=== PATIENT | female | born 1940 | race Caucasian/White ===

== ENCOUNTER 2016-11-20 09:45 | Emergency (ER) | payer OTHER ==
[2016-11-20 09:56] VITALS: BP 128/99; PULSE 90; TEMP 97.8; BMI 20.9
--- NOTE | 2016-11-20 10:13 | PDOC ---
Attending Attestation - Resident Resident Name: Lynn Nath - ED Attending Attestation I have performed the following: I have examined & evaluated the patient, The case was reviewed & discussed with the resident, I agree w/resident's findings & plan, Exceptions are as noted - HPI HPI: 11/20/16 10:35 The patient is 75 year old female who presents with back pain that occurred while bending over and putting her underwear on and has been intermittent for the past three days. It is lower and lateral. It only occurs with position change. It does not radiate. She denies lower extremity weakness. She denies sensory loss. She denies bladder or bowel incontinence or retention. She has an appointment with her orthopedic surgeon next week. She denies fever, rash. She denies trauma. She denies urinary symptoms, nausea, vomiting, diarrhea, abdominal pain. - Physicial Exam PE: 11/20/16 10:38 Reproducible tenderness over left gluteus major and minor laterally No strength or sensory deficits in that lower extremity - Medical Decision Making 11/20/16 10:39 Clinical impression: Muscle strain of the gluteus minor/major I discussed the physical exam findings, ancillary test results and final diagnoses with the patient. I answered all of the patient's questions. The patient was satisfied with the care received and felt comfortable with the discharge plan and treatment plan. The patient will call their primary care physician within 24 hours to arrange follow-up and will return to the Emergency Department with any new, persistent or worsening symptoms. Discharge Disposition - Diagnosis Muscle strain of gluteal region - Discharge Dispostion Disposition: HOME Condition at time of disposition: Stable Last Admission D/C Date: 04/02/09 - Referrals Referrals: Kin Goodman MD [Staff Physician] - (See him next week as scheduled)
--- NOTE | 2016-11-20 10:57 | PDOC ---
History of Present Illness <АндрейArcadio - Last Filed: 11/20/16 10:59> - General History Source: Patient Exam Limitations: No Limitations - History of Present Illness Initial Comments: 11/20/16 11:01 This is a 75 yp F with PMH of HTN and HLD, who presents due to L sided hip pain x 3 days. It started suddenly as she was bending over. It is sharp, nonradiating , localized over her L buttock and illicited by getting up from sitting or lying. She is pain free while walking, standing or lying. She denies numbness, weakness, paresthesia or loss of bowels. she denies pain radiation down leg. She denies f/c, chest pain, sob, n.v, diarrhea, constipation, dysuria, hematuria , flank pain. SHE HAS A HISTORY OF MINOR PROCEDURE WITH DR MELTON FOR A DIFFERENT KIND OF BACK PAIN 5 YRS AGO, PROBABLY EPIDURAL AND HAS AN APPOINTMENT WITH HIM NEXT WEEK. 11/20/16 11:05 11/20/16 11:29 <Lynn Nath - Last Filed: 11/20/16 11:36> - General Chief Complaint: Back Pain Stated Complaint: BACK PAIN Time Seen by Provider: 11/20/16 09:48 Past History <Arcadio Chiang - Last Filed: 11/20/16 10:59> - Travel Traveled outside of the country in the last 30 days: No Close contact w/someone who was outside of country & ill: No - Past Medical History Anemia: No Asthma: No Cancer: No Cardiac Disorders: Yes (MITRAL VALVE DISORDER, RBBB) CVA: No COPD: No CHF: No Dementia: No Diabetes: No GI Disorders: Yes (VOLVULUS 2007) Disorders: No HTN: No Hypercholesterolemia: Yes Liver Disease: No Seizures: No Thyroid Disease: No Other medical history: PNEUMONIA, SHINGELES - Surgical History Abdominal Surgery: Yes (COLON RESECTION FOR VOLVULUS 2007) Appendectomy: No Cardiac Surgery: No Cholecystectomy: No Lung Surgery: No Neurologic Surgery: No Orthopedic Surgery: Yes (LEFT ROTATOR CUFF REPAIR) - Immunization History Immunization Up to Date: Yes - Psycho/Social/Smoking Cessation Hx Anxiety: No Suicidal Ideation: No Smoking Status: No Smoking History: Never smoked Have you smoked in the past 12 months: No Number of Cigarettes Smoked Daily: 0 Information on smoking cessation initiated: No Hx Alcohol Use: No Drug/Substance Use Hx: No Substance Use Type: None Hx Substance Use Treatment: No <Lynn Nath - Last Filed: 11/20/16 11:36> - Past Medical History Allergies/Adverse Reactions: Allergies Allergy/AdvReac Type Severity Reaction Status Date / Time No Known Allergies Allergy Verified 11/20/16 09:56 Home Medications: Ambulatory Orders Atorvastatin Ca [Lipitor] 10 mg PO HS 11/20/16 Diazepam [Valium] 5 mg PO Q8H PRN #9 tablet MDD 3 11/20/16 Naproxen [Naprosyn] 500 mg PO BID PRN #20 tablet 11/20/16 Niacin [Niaspan] 2,000 mg PO HS 11/20/16 Polyethylene Glycol 3350 [Miralax (For Daily Use) -] 17 gm PO DAILY 11/20/16 Review of Systems - Review of Systems Able to Perform ROS?: Yes Is the patient limited Mexican proficient: No Constitutional: No: Chills, Fever, Loss of Appetite, Weakness HEENTM: No: Blurred Vision, Nose Congestion, Throat Pain Respiratory: No: Cough, Orthopnea, Shortness of Breath Cardiac (ROS): No: Chest Pain, Irregular Heart Rate, Palpitations, Syncope ABD/GI: No: Abdominal Distended, Blood Streaked Bowels, Nausea, Rectal Bleeding , Vomiting, Tarry Stools : No: Burning, Dysuria, Flank Pain Musculoskeletal: No: Joint Pain, Joint Swelling, Muscle Pain, Muscle Weakness, Joint Stiffness Integumentary: No: Bruising Neurological: No: Headache, Numbness, Paresthesia Psychiatric: No: Anxiety, Stressors Endocrine: No: Change in Weight Hematologic/Lymphatic: No: Anemia, Blood Clots, Easy Bleeding, Easy Bruising All Other Systems: Reviewed and Negative <Lynn Nath - Last Filed: 11/20/16 11:36> *Physical Exam - Vital Signs Last Vital Signs Temp Pulse Resp BP Pulse Ox 97.8 F 90 16 128/99 99 11/20/16 09:46 11/20/16 09:46 11/20/16 09:46 11/20/16 09:46 11/20/16 09:46 <Arcadio Chiang - Last Filed: 11/20/16 10:59> - Vital Signs Last Vital Signs Temp Pulse Resp BP Pulse Ox 97.8 F 90 16 128/99 99 11/20/16 09:46 11/20/16 09:46 11/20/16 09:46 11/20/16 09:46 11/20/16 09:46 - Physical Exam Comments: 11/20/16 11:31 GENERAL: NAD, AAOx3 HEENT: normocephalic, atraumatic, PERRLA EOMI, sclera anicteric, conjunctiva clear CV: RRR S1S2 PULM: CTA b/l GI: soft, nontender, normoactive bowel sounds. no mass SKIN: no lesions mulculoskepetal: no peripheral edema, reproducible L buttick pain with interbal rotation of L thigh with flexion. crossing L leg past midline Neuro: 4+/5 strenght in LE b/l, sensation intact. <Lynn Nath - Last Filed: 11/20/16 11:36> Medical Decision Making - Medical Decision Making 11/20/16 11:34 Patient presents with clinical picture most consistent with L buttock muscle spasm, possibly piriformis or gluteus minor. There is no clinical evidence of neurological culprit. Imaging not indicated. recommend NSAIDS, icing and muscle relaxants as well as ortho f/u. 11/20/16 11:36 <Lynn Nath - Last Filed: 11/20/16 11:36> *DC/Admit/Observation/Transfer <Arcadio Chiang - Last Filed: 11/20/16 10:59> - Discharge Dispostion Admit: No <Lynn Nath - Last Filed: 11/20/16 11:36> Diagnosis at time of Disposition: Muscle strain of gluteal region, Muscle spasm, Left hip pain - Discharge Dispostion Disposition: HOME Condition at time of disposition: Stable - Prescriptions Prescriptions: Naproxen [Naprosyn] 500 mg PO BID PRN #20 tablet PRN Reason: Pain Diazepam [Valium] 5 mg PO Q8H PRN #9 tablet MDD 3 PRN Reason: Pain - Referrals Referrals: Kin Melton MD [Staff Physician] - (See him next week as scheduled) - Patient Instructions Additional Instructions: You right sided back and hip pain is due to a muscle spasm in your buttock. Please take Aleve twice a day and keep in mind that it takes several days to work. Ice the affected area daily. You may take one valium before sleep to relax your muscle but be aware that it will make your drowsy and tipsy. Please follow up with Dr Melton. Return to ED if symptoms persist, get worse or if you develop new symptoms.
== END 2016-11-20 11:10 | disposition home or self-care (01) ==
LOC: FER 09:45
DX: M62.838 Other muscle spasm (principal); M25.552 Pain in left hip; T14.8 Other injury of unspecified body region; X58.XXXA Exposure to other specified factors, initial encounter; Y93.9 Activity, unspecified; Y92.9 Unspecified place or not applicable; I10 Essential (primary) hypertension; E78.5 Hyperlipidemia, unspecified; I45.10 Unspecified right bundle-branch block
CPT/HCPCS: 99282-25

== ENCOUNTER 2016-12-21 07:39 | Emergency (ER) | payer OTHER ==
[2016-12-21 07:50] VITALS: TEMP 97.8; BMI 19.4
--- NOTE | 2016-12-21 08:24 | PDOC ---
Attending Attestation - Resident Resident Name: JanaeJalen - ED Attending Attestation I have performed the following: I have examined & evaluated the patient, The case was reviewed & discussed with the resident, I agree w/resident's findings & plan, Exceptions are as noted - HPI HPI: 12/21/16 10:18 76y/o F h/o HTN, high chol, volvulus requiring surgical repair in the past p/w quite acute onset of periumbilical/upper abd pain last night with nausea, no vomiting. Did have slighly increased loose stool, also non-bloody. no f/c, no travel/sick contacts/recent abx/recurring nsaid or etoh use. Unlike her prior volvulus pain, this was much less severe. Pain has now resolved, just left with a vague soreness. - Physicial Exam PE: 12/21/16 10:21 VSS well appearing, ambulating, mmm no jaundice/pallor abd soft/nd. epigastric discomfort but no guarding/rebound. BS wnl. no cvat - Medical Decision Making 12/21/16 10:22 Patient seen and evaluated with the resident. I agree with the overall evaluation, assessment, and management with the following summary of visit: 76-year-old female with history of hypertension, high cholesterol, volvulus presents with abdominal pain/nausea/vomiting since last night, now resolved. Abdominal exam is nonlocalizing and quite benign at this time. Intermittent SBO or volvulus is on the differential though slightly less likely given the rectal output. Question dyspepsia/gastritis, rule out liver or pancreatic involvement. Labs, EKG Antacid IV fluids Reassess, no indication for emergent imaging at this time. Heart Score/ECG Review #1 General ECG Interpretation: Sinus Rhythm (RBBB, QRS 124, QTC 470), Normal Rate ( 72), No acute ischemic changes
--- NOTE | 2016-12-21 08:25 | PDOC ---
History of Present Illness - General Chief Complaint: Pain Stated Complaint: ABD PAIN Time Seen by Provider: 12/21/16 08:02 - History of Present Illness Initial Comments: 12/21/16 09:05 Patient is a 76 year old female with a history of volvulus, HTN, HLD, scoliosis who presents with abdominal pain. Patient states that she experienced sudden onset 10/10 sharp abdominal pain beginning earlier this morning and keeping her up all night prompting her visit to the ED today. She states that the pain is now less severe and more achy in quality. She endorses nausea associated with the pain but denies any vomiting. She reports loose bowel movements which is normal for her with her most recent being in the ED. She denies any bloody stools, fevers, chills, chest pain, or SOB. Past History - Past Medical History Allergies/Adverse Reactions: Allergies Allergy/AdvReac Type Severity Reaction Status Date / Time No Known Allergies Allergy Verified 12/21/16 07:49 Home Medications: Ambulatory Orders Atorvastatin Ca [Lipitor] 20 mg PO HS 11/20/16 Niacin [Niaspan] 2,000 mg PO HS 11/20/16 Polyethylene Glycol 3350 [Miralax (For Daily Use) -] 17 gm PO DAILY 11/20/16 Anemia: No Asthma: No Cancer: No Cardiac Disorders: Yes (MITRAL VALVE DISORDER, RBBB) CVA: No COPD: No CHF: No Dementia: No Diabetes: No GI Disorders: Yes (VOLVULUS 2007) Disorders: No HTN: Yes Hypercholesterolemia: Yes Liver Disease: No Seizures: No Thyroid Disease: No - Surgical History Abdominal Surgery: Yes (COLON RESECTION FOR VOLVULUS 2007) Appendectomy: No Cardiac Surgery: No Cholecystectomy: No Lung Surgery: No Neurologic Surgery: No Orthopedic Surgery: Yes (LEFT ROTATOR CUFF REPAIR) - Immunization History Immunization Up to Date: Yes - Psycho/Social/Smoking Cessation Hx Anxiety: No Suicidal Ideation: No Smoking Status: No Smoking History: Never smoked Have you smoked in the past 12 months: No Number of Cigarettes Smoked Daily: 0 Hx Alcohol Use: No Drug/Substance Use Hx: No Substance Use Type: None Hx Substance Use Treatment: No Review of Systems - Review of Systems Constitutional: No: Chills, Fever HEENTM: No: Nose Congestion, Throat Pain Respiratory: No: Cough, Shortness of Breath Cardiac (ROS): No: Chest Pain, Palpitations ABD/GI: Yes: Diarrhea, Nausea. No: Blood Streaked Bowels, Constipated, Rectal Bleeding, Vomiting, Tarry Stools : No: Burning, Dysuria, Flank Pain, Hematuria Integumentary: No: Rash Neurological: No: Headache, Tingling *Physical Exam - Vital Signs Last Vital Signs Temp Pulse Resp BP Pulse Ox 97.8 F 91 H 18 143/69 99 12/21/16 07:45 12/21/16 07:45 12/21/16 07:45 12/21/16 07:45 12/21/16 07:45 - Physical Exam Comments: 12/21/16 09:15 General Appearance: Nourished. No Apparent Distress HEENT: No Pharyngeal Erythema, Tonsillar Exudate, Tonsillar Erythema Respiratory/Chest: Lungs Clear, Normal Breath Sounds. No Crackles, Rales, Rhonchi, Wheezing Cardiovascular: Regular Rhythm, Regular Rate. No Murmur, Gallop/S3, Gallop/S4 Gastrointestinal/Abdominal: Normal Bowel Sounds, Soft. Mild tenderness in the epigastric region. No Guarding, Rebound Extremity: Normal Capillary Refill Integumentary: Normal Color, Dry, Warm Neurologic: Fully Oriented, Alert, Normal Mood/Affect, Normal Response Heart Score/ECG Review #1 ECG reviewed & interpreted by me at: 08:24 (Sinus rhythm, normal rate. Widened QRS interval with t wave inversions in V1-V4. Complete Right bundle branch block.) Compared to previous ECG there are: No significant change (10/24/15) ED Treatment Course - LABORATORY CBC & Chemistry Diagram: 12/21/16 10:07 12/21/16 10:07 Medical Decision Making - Medical Decision Making 12/21/16 10:10 Patient is a 76 year old female with a history of volvulus and scoliosis who presents with abdominal pain. Differential includes but is not limited to: gastritis, GERD, gallbladder pathology, pancreatits, obstruction, hernia, infectious, ACS. Given the patient's physical exam and history, the most likely cause of her symptoms is gastritis or GERD. We will obtain a set of labs including cbc, cmp, troponin, lipase. We are less concerned for ACS, obstruction or infectious given her physical exam and presentation. We will hold off on imaging pending lab values. 12/21/16 11:15 Patient's labs hemolyzed and had to be redrawn. Patient feels clinically improved with pepcid and IV fluids and is requesting discharge. We discussed with the patient the need to wait for lab results, however the patient still requested discharge. CBC and lipase currently resulted as normal. CMP pending. We feel comfortable discharging the patient and will call them with the results of the CMP. We discussed return precautions with the patient and she is agreeable to the plan. 12/21/16 13:19 CMP results are unremarkable. Called patient and notified her of the results. The patient voiced understanding. *DC/Admit/Observation/Transfer Diagnosis at time of Disposition: Dyspepsia Gastritis Qualifiers: Gastritis type: unspecified gastritis Chronicity: unspecified Gastritis bleeding: without bleeding Qualified Code(s): K29.70 - Gastritis, unspecified, without bleeding - Discharge Dispostion Disposition: HOME Condition at time of disposition: Improved - Referrals Referrals: Jose Elias Polanco MD [Primary Care Provider] - - Patient Instructions Printed Discharge Instructions: DI for Gastritis Additional Instructions: Please return to the ER if you experience concerning or worsening symptoms. We will call you with the results of your labs. If any labs are abnormal, please return to the ER immediately. Please follow up with your primary care provider to discuss your ER visit. You may take Pepcid 20mg tablets twice daily for 1 week to help alleviate your symptoms. - Attestations Physician Attestion: 12/21/16 10:46 I, Dr. Jalen Cardoso, attest that this document has been prepared under my direction and personally reviewed by me in its entirety. I further attest, that it accurately reflects all work, treatment, procedures and medical decision -making performed by me.
[2016-12-21] MEDS ORDERED: FAMOTIDINE 20 MG/50 ML IVPB 50 ML IVPB ONE ×2 (08:49→09:07)
[2016-12-21] MEDS ORDERED: SODIUM CHLORIDE 1,000 ML IV STA (09:29)
[2016-12-21 10:20] LABS: BASOPHIL 0.8 % (0-2.0); EOSINOPHIL 1.8 % (0-4.5); MCH 33.1 pg (25.7-33.7); MCHC 33.7 g/dl (32.0-36.0); MEAN CELL VOLUME 98.2 fl (80-96); MEAN PLT VOLUME 7.9 fl (7.5-11.1); NEUTROPHILS 73.4 % (42.8-82.8); PLATELET COUNT 235 K/MM3 (134-434); RDW 11.9 % (11.6-15.6); WHITE BLOOD COUNT 8.4 K/mm3 (4.0-10.0)
[2016-12-21 10:44] LABS: ALBUMIN 4.1 g/dl (3.4-5.0); ANION GAP 9 (8-16); BILIRUBIN,TOTAL 0.6 mg/dL (0.2-1.0); CALCIUM 9.2 mg/dL (8.5-10.1); CO2 29 mmol/L (21-32); CREATININE 0.6 mg/dL (0.55-1.02); GLUCOSE,RANDOM 103 mg/dL (74-106); SGOT/AST 26 U/L (15-37); SGPT/ALT 23 U/L (12-78); TOT PROT 7.2 g/dl (6.4-8.2)
[2016-12-21 10:46] LABS: ALK PHOS 87 U/L (45-117); TROPONIN I < 0.02 ng/ml (0.00-0.05)
[2016-12-21 11:04] VITALS: BP 151/78; PULSE 67
--- NOTE | 2016-12-21 16:13 | EKG ---
Test Reason : Blood Pressure : / mmHG Vent. Rate : 072 BPM Atrial Rate : 072 BPM P-R Int : 120 ms QRS Dur : 124 ms QT Int : 430 ms P-R-T Axes : 059 017 010 degrees QTc Int : 470 ms NORMAL SINUS RHYTHM RIGHT BUNDLE BRANCH BLOCK ABNORMAL ECG WHEN COMPARED WITH ECG OF 24-OCT-2015 09:40, NO SIGNIFICANT CHANGE WAS FOUND CORELATE CLINICALLY Confirmed by CHEPE HUERTA MD ([id number]) on 12/21/2016 4:13:30 PM Referred By: Confirmed By:CHEPE HUERTA MD
== END 2016-12-21 11:00 | disposition home or self-care (01) ==
LOC: JER 07:39
PROC: 3E0337Z Introduction of Electrolytic and Water Balance Substance into Peripheral Vein, Percutaneous Approach (ICD-10-PCS; principal; 2016-12-21)
PROC: 3E033GC Introduction of Other Therapeutic Substance into Peripheral Vein, Percutaneous Approach (ICD-10-PCS; 2016-12-21)
DX: K29.70 Gastritis, unspecified, without bleeding (principal); R10.13 Epigastric pain; I10 Essential (primary) hypertension; E78.00 Pure hypercholesterolemia, unspecified; I34.1 Nonrheumatic mitral (valve) prolapse; Z87.19 Personal history of other diseases of the digestive system
CPT/HCPCS: 36415; 80053; 82550; 83690; 84484; 85025; 93005; 93010; 96361; 96365; 99282-25

== ENCOUNTER 2017-12-22 09:01 | Emergency (ER) | payer OTHER ==
[2017-12-22 09:18] VITALS: BP 137/62; PULSE 83; TEMP 97.8; BMI 19.3
--- NOTE | 2017-12-22 10:01 | PDOC ---
History of Present Illness - General Chief Complaint: Loss of Appetite Stated Complaint: INSOMNIA Time Seen by Provider: 12/22/17 09:38 History Source: Patient, Spouse Exam Limitations: No Limitations - History of Present Illness Initial Comments: 12/22/17 10:08 77 yr female history of high cholesterol, presents to ER stating she has not slept in 3 nights. Pt is stressed at home taking care of and her bipolar adult daughter who lives with them. Pt denies suicidal thoughts, no alcohol or drug use. Pt asking for refill of the sleeping pill she had last month by . Past History - Past Medical History Allergies/Adverse Reactions: Allergies Allergy/AdvReac Type Severity Reaction Status Date / Time No Known Allergies Allergy Verified 12/22/17 09:12 Home Medications: Ambulatory Orders Atorvastatin Ca [Lipitor] 20 mg PO HS 11/20/16 Niacin [Niaspan] 2,000 mg PO HS 11/20/16 Polyethylene Glycol 3350 [Miralax (For Daily Use) -] 17 gm PO DAILY 11/20/16 Diphenhydramine HCl [Benadryl -] 25 mg PO HS PRN #10 capsule 12/17/17 Zolpidem Tartrate [Ambien] 5 mg PO HS PRN #7 tablet MDD 5mg 12/22/17 Anemia: No Asthma: No Cancer: No Cardiac Disorders: Yes (MITRAL VALVE DISORDER, RBBB) CVA: No COPD: No CHF: No Dementia: No Diabetes: No GI Disorders: Yes (VOLVULUS 2007) Disorders: No HTN: Yes Hypercholesterolemia: Yes Liver Disease: No Seizures: No Thyroid Disease: No - Surgical History Abdominal Surgery: Yes (COLON RESECTION FOR VOLVULUS 2007) Appendectomy: No Cardiac Surgery: No Cholecystectomy: No Lung Surgery: No Neurologic Surgery: No Orthopedic Surgery: Yes (LEFT ROTATOR CUFF REPAIR) - Immunization History Immunization Up to Date: Yes - Suicide/Smoking/Psychosocial Hx Smoking Status: No Smoking History: Never smoked Have you smoked in the past 12 months: No Number of Cigarettes Smoked Daily: 0 Information on smoking cessation initiated: No Hx Alcohol Use: No Drug/Substance Use Hx: No Substance Use Type: None Hx Substance Use Treatment: No Review of Systems - Review of Systems Able to Perform ROS?: Yes Is the patient limited Telugu proficient: No Constitutional: No: Symptoms Reported HEENTM: No: Symptoms Reported Respiratory: No: Symptoms reported Cardiac (ROS): No: Symptoms Reported ABD/GI: No: Symptoms Reported : No: Symptoms Reported Musculoskeletal: No: Symptoms Reported Integumentary: No: Symptoms Reported Neurological: No: Symptoms reported Psychiatric: Yes: Stressors, Sleep Pattern Change, Change in Appetite Endocrine: No: Symptoms Reported Hematologic/Lymphatic: No: Symptoms Reported *Physical Exam - Vital Signs Last Vital Signs Temp Pulse Resp BP Pulse Ox 97.8 F 83 18 137/62 100 12/22/17 09:15 12/22/17 09:15 12/22/17 09:15 12/22/17 09:15 12/22/17 09:15 - Physical Exam General Appearance: Yes: Nourished, Appropriately Dressed, Thin HEENT: positive: EOMI, ANGELO Extremity: positive: Normal Capillary Refill, Normal Inspection, Normal Range of Motion Integumentary: positive: Normal Color, Dry, Warm Neurologic: positive: Fully Oriented, Alert, Normal Mood/Affect, Normal Response , Motor Strength 5/5, Other (denies SI, HI ). negative: Confused, Disoriented Medical Decision Making - Medical Decision Making 12/22/17 10:11 cc: insomnia for 3 days decreased appetite, followed by I called [facility] she was prescribed zolpidem will prescribe 7 day supply pt is to see her PMD tomorrow *DC/Admit/Observation/Transfer Diagnosis at time of Disposition: Insomnia Qualifiers: Insomnia type: primary Qualified Code(s): F51.01 - Primary insomnia - Discharge Dispostion Disposition: HOME Condition at time of disposition: Good - Prescriptions Prescriptions: Zolpidem Tartrate [Ambien] 5 mg PO HS PRN #7 tablet MDD 5mg PRN Reason: Insomnia - Referrals Referrals: Jose Elias Polanco MD [Staff Physician] - - Patient Instructions Additional Instructions: please follow up with your doctor TOMORROW , you may need to also speak with a psychiatrist your doctor can refer you to please take the sleeping pill at bedtime return to ER for any worsening symptoms - Post Discharge Activity
== END 2017-12-22 10:38 | disposition home or self-care (01) ==
LOC: JERFT 09:01
DX: F51.05 Insomnia due to other mental disorder (principal); I10 Essential (primary) hypertension; E78.00 Pure hypercholesterolemia, unspecified; Z63.8 Other specified problems related to primary support group
CPT/HCPCS: 99281-25